=== PATIENT | female | born 1975 | race Caucasian/White ===

== ENCOUNTER 2018-04-27 13:46 | Emergency (ER) | END 2018-04-27 17:00 | disposition home or self-care (01) ==

== ENCOUNTER 2018-06-16 01:00 | Emergency (ER) | END 2018-06-16 02:43 | disposition home or self-care (01) ==

== ENCOUNTER 2018-11-12 23:02 | Emergency (ER) | END 2018-11-13 02:55 | disposition home or self-care (01) ==

== ENCOUNTER 2019-08-16 09:16 | Emergency (ER) | payer MEDICAID ==
[~2019-08-16] VITALS: Ht 162.6 cm; Wt 62.1 kg
[~2019-08-16 09:16] MED LIST: BEN25 PO; CIPR-193 PO; GABA300C16 PO; HYDR-4011 PO; NITR-58 PO; NO MEDS TAKEN
[2019-08-16 09:20] VITALS: BP 152/80; PULSE 93; RESP 17; Ht 162.6 cm; Wt 62.1 kg
[2019-08-16] MEDS ORDERED: LORAZEPAM 1 MG TAB PO ONE (10:00)
== END 2019-08-16 11:49 | disposition home or self-care (01) ==
LOC: EEVIPCON 09:16 → FTE 09:16
DX: F41.9 Anxiety disorder, unspecified (principal)
CPT/HCPCS: 81025; Z7502; Z7610; 99283